=== PATIENT | female | born 1980 ===

== ENCOUNTER 2016-11-14 22:28 | Observation (INO) | payer MEDICARE, MEDICAID ==
[2016-11-14 22:34] VITALS: TEMP 98.9
--- NOTE | 2016-11-14 22:53 | ED PDOC ---
Lower Extremity Pain/Injury Chief Complaint (Provider): Ankle deformity History Per: Patient Additional Complaint(s): 35 yo female, PMH of speech impediment, presents to ED with complaints of right ankle deformity sustained tonight when she slipped on he dress while dancing. Pt declined pain medication upon arrival. Pt denies nay previous break to affected extremity <Lula Melendez - Last Filed: 11/15/16 03:16> <Ankit Wayne - Last Filed: 11/15/16 03:32> Time Seen by Provider: 11/14/16 22:41 Chief Complaint (Nursing): Lower Extremity Problem/Injury Past Medical History Reviewed: Nursing Documentation, Vital Signs Vital Signs: Last Vital Signs Temp 98.9 F 11/14/16 22:30 Pulse 98 H 11/14/16 22:30 Resp 18 11/14/16 22:30 BP 113/85 11/14/16 22:30 Pulse Ox 98 11/14/16 22:30 - Medical History PMH: No Chronic Diseases - Surgical History Surgical History: Back Surgery - Family History Family History: States: No Known Family Hx - Living Arrangements Living Arrangements: With Family - Social History Current smoker - smoking cessation education provided: No Alcohol: None Drugs: Denies <AlLula Linh - Last Filed: 11/15/16 03:16> Vital Signs: Last Vital Signs Temp 98.9 F 11/14/16 22:30 Pulse 98 H 11/14/16 22:30 Resp 18 11/14/16 22:30 BP 113/85 11/14/16 22:30 Pulse Ox 98 11/14/16 22:53 <Ankit Wayne - Last Filed: 11/15/16 03:32> - Home Medications Home Medications: Ambulatory Orders Medication Instructions Recorded Ibuprofen [Motrin] 600 mg PO Q6 #20 tab 11/15/16 oxyCODONE/Acetaminophen [Percocet 1 ea PO Q6 PRN #5 tab 11/15/16 5/325 mg Tab] - Allergies Allergies/Adverse Reactions: Allergies Allergy/AdvReac Type Severity Reaction Status Date / Time No Known Allergies Allergy Verified 11/14/16 22:30 Review of Systems ROS Statement: Except As Marked, All Systems Reviewed And Found Negative Musculoskeletal: Positive for: Other (ankle pain) <Lula Melendez Last Filed: 11/15/16 03:16> Physical Exam - Reviewed Nursing Documentation Reviewed: Yes Vital Signs Reviewed: Yes - Physical Exam Appears: Positive for: Well, Non-toxic, No Acute Distress Head Exam: Positive for: ATRAUMATIC, NORMAL INSPECTION, NORMOCEPHALIC Skin: Positive for: Normal Color, Warm, DRY Eye Exam: Positive for: EOMI, Normal appearance, PERRL ENT: Positive for: Normal ENT Inspection Neck: Positive for: Normal, Painless ROM Cardiovascular/Chest: Positive for: Regular Rate, Rhythm Respiratory: Positive for: CNT, Normal Breath Sounds Gastrointestinal/Abdominal: Positive for: Normal Exam, Bowel Sounds, Soft Back: Positive for: Normal Inspection Extremity: Positive for: Deformity, Swelling, Other (right foot displaed laterally with moderate edema and ecchymosis noted over medical malleolus) Neurologic/Psych: Positive for: Alert, Oriented <Lula Melendez - Last Filed: 11/15/16 03:16> - ECG O2 Sat by Pulse Oximetry: 98 <Lula Melendez - Last Filed: 11/15/16 03:16> - Critical Care Total Time (In Min): 30 <Ankit Wayne - Last Filed: 11/15/16 03:32> Medical Decision Making Medical Decision Making: Pt again declined analgesics upon arrival XR obtained; (+) fracture of distal fib with moderate displacement, as read by [facility] consult obtained and residents presented to bedside for reduction. ED MD, Dr. Wayne, preformed conscious sedation. See ED note. Pt splinted by Podiatry team and follow up arranged <Lula Melendez Last Filed: 11/15/16 03:16> Disposition - Patient ED Disposition Is Patient to be Admitted: No - Disposition Disposition: Routine/Home Disposition Time: 03:22 - POA Present On Arrival: None <Lula Melendez Last Filed: 11/15/16 03:16> <Ankit Wayne - Last Filed: 11/15/16 03:32> - Clinical Impression Clinical Impression: Ankle fracture - Disposition Condition: STABLE ED Procedural Sedation <WagnerdiamondGina sheikhLulakristie Blank Last Filed: 11/15/16 03:16> - Pre Anesthesia Assessment Past Medical History: Medications Reviewed, Allergies Reviewed, Record Review Previous Surgies: Reviewed Family History/Social History: Reviewed - Physical Exam/Review of Systems Vital Signs Reviewed: Yes Cardiovascular: Regular Rate and Rhythm, Normal S1, S2. denies: Murmurs Respiratory/Chest: Clear to Auscultation, Good Air Exchange. denies: Respiratory Distress, Accessory Muscle Use Neurological: GCS=15, CN II-XII Intact, Speech Normal Abdomen: Normal Bowel Sounds. denies: Tenderness, Distention, Peritoneal Signs Mental Status: Alert and Oriented X 3 - Pre-Procedure Airway Assessment History of difficult intubation or surgical airway (i.e trach):: No Inability to extend neck:: No Mouth opening less than two finger breadth:: No Diagnosis of sleep apnea:: No Less than three finger breadth to hyoid bone:: No ASA Criteria: 1 - Healthy, normal. 2 - Mild systemic disease (No functional limitations, mildline obesity, DM withot complications, Hypertention). 3 - Severe systemic disease (Some functional limitation, stable angina, morbid obesity, controlled COPD/Asthma/CHF). 4 - Sever systemic disease constant threat to life (Unstable angina, active symptoms of COPD/Asthma, CHF/ Hypertension. 5 - Moribund ASA Clarification: ASA I - Intra-Procedure (Medications) Medications Given: Sodium Chloride (Sodium Chloride 0.9%) 1,000 mls @ 1,000 mls/hr IV .Q1H STA Stop: 11/15/16 03:04 Last Admin: 11/15/16 02:19 Dose: 1,000 mls/hr Discontinued Medications Propofol (Diprivan) Confirm Administered Dose 1,000 mg in 100 mls @ ud .ROUTE .STK-MED ONE Stop: 11/15/16 02:17 Morphine Sulfate (Morphine) 2 mg IV ONCE ONE Stop: 11/14/16 23:20 Last Admin: 11/15/16 00:09 Dose: 2 mg Propofol (Diprivan) 100 mg IV ONCE ONE Stop: 11/15/16 02:07 Last Admin: 11/15/16 02:21 Dose: 100 mg - Post-Procedure Post Procedure Note: Reduction performed under sedation, and was easily completed. XR confirms positioning. Patient on cardiac catheterization technologist and tolerated the procedure well. <Ankit Wayne - Last Filed: 11/15/16 03:32> - Pre Anesthesia Assessment Chief Complaint: Lower Extremity Problem/Injury
[2016-11-15] MEDS ORDERED: Sodium Chloride 0.9% 1,000 ML IV STA (02:05)
[2016-11-15] MEDS ORDERED: Propofol 10 mg/ml Inj (20 ML) IV ONE (02:06)
[2016-11-15] MEDS ORDERED: Propofol 10 mg/ml 1,000 MG/100 ML VIAL ONE (02:16)
--- NOTE | 2016-11-15 02:17 | CP.PCM.CON ---
History of Present Illness - History of Present Illness History of Present Illness: 35 y/o female with no PMHx seen at bedside in ED for right displaced fibular fracture. Pt states that she was dancing around 9:30pm today when the injury occured. Pt denies of any other injuries on the body. Pt states that she just received pain medication so her pain is well managed. Pt states that she last ate or drank around 9 - 9:30pm. Pt denies of any recent F/N/V/C/SOB. PMHx: Denies PSHx: Back surgery Allergies: N.K.D.A SHx: Denies Review of Systems - Constitutional Constitutional: As Per HPI Past Patient History - Past Social History Smoking Status: Never Smoked - NEUROLOGICAL Hx Neurological Disorder: Yes (developmental delay, autisitic) - PSYCHIATRIC Hx Substance Use: No Meds Allergies/Adverse Reactions: Allergies Allergy/AdvReac Type Severity Reaction Status Date / Time No Known Allergies Allergy Verified 11/14/16 22:30 - Medications Medications: Current Medications Sodium Chloride (Sodium Chloride 0.9%) 1,000 mls @ 1,000 mls/hr IV .Q1H STA Stop: 11/15/16 03:04 Physical Exam - Constitutional Appears: Well, Non-toxic, No Acute Distress - Extremities Exam Additional comments: Right LE focused exam: VASC: DP/PT pulses are palpable 1/4, ELIGIBILITY AND OCCUPANCY INTERVIEWER: < 3 sec to all digits, TG: warm to cool, non-pitting edema noted on the lateral ankle DERM: no open lesions, no clinical suspicion of infections NEURO: Protective sensation grossly intact ORTHO: Active ROM intact at MTPJ, mild tenderness on the palpation of the lateral ankle - Neurological Exam Neurological exam: Alert, Oriented x3 - Psychiatric Exam Psychiatric exam: Normal Affect, Normal Mood Results - Vital Signs Recent Vital Signs: Last Vital Signs Temp 98.9 F 11/14/16 22:30 Pulse 98 H 11/14/16 22:30 Resp 18 11/14/16 22:30 BP 113/85 11/14/16 22:30 Pulse Ox 98 11/14/16 22:53 Assessment & Plan - Assessment and Plan (Free Text) Assessment: 35 y/o female seen at bedside in ED for a displaced spiral right fibular fracture (GUME: SER) Plan: Pt evaluated and chart reviewed Pt discussed in details with attending Dr. Loza Signed consent obtained by parents as well as the pt for close reduction of R ankle and sedation Closed reduction performed with sedation Pt tolerated the reduction well Pre and Post reduction x-rays taken and reviewed: post reduction films show adequate reduction of the R displaced fibula Posterior splint applied to R lower extremity using webril, plaster cast and RUSTY bandage Pt educated to use crutches and prevent from weightbearing to RLE Pt educated to elevate and ice posterior to the knee Pt/parents demonstrated verbal understanding Pt to follow up in the podiatry clinic on Thursday afternoon for further workup (pt unable to follow up on Thursday due to personal matter) Pt educated she will need surgery sometimes this week Thank you for the podiatry consult
[2016-11-15 02:49] VITALS: BP 121/85; PULSE 83; RESP 12
[2016-11-15 03:19] VITALS: O2SAT 98
--- NOTE | 2016-11-15 14:06 | RAD ---
PROCEDURE: Right ankle dated 11/15/2016 HISTORY: Post reduction films COMPARISON: None FINDINGS: BONES: Current study reveals interval closed reduction previously noted fracture dislocation of the right fibula and tibia respectively. Improved anatomic alignment. Moderate significant surrounding soft tissue swelling. JOINTS: Talar dome is intact so far as can be seen SOFT TISSUES: Normal. OTHER FINDINGS: None. IMPRESSION: Closed reduction previously noted fracture dislocation of the right fibula and tibia respectively. Improved anatomic alignment. Surrounding soft tissue swelling.
--- NOTE | 2016-11-15 14:08 | RAD ---
Right ankle dated 11/15/2016. History: Status post fall with deformity. Three standard views of the right ankle performed. No prior. Findings: Current study reveals a oblique/diagonal fracture traversing the distal fibula with mild posterior displacement of the distal fragment. . Associated medial dislocation of the right tibia with respect to the to the talus. . Moderate surrounding soft tissue swelling lateral greater than medial. Impression: There is an oblique/ diagonal fracture traversing the distal fibula with medial dislocation of the tibia with respect to the talus. Surrounding soft tissue swelling.
== END 2016-11-15 03:36 | disposition home or self-care (01) ==
LOC: H.ER 22:28 → H.EROBSV 23:10
PROVIDERS: ADMIT Emergency Medicine; ATTEND Emergency Medicine
DX: S82.441A Displaced spiral fracture of shaft of right fibula, initial encounter for closed fracture (principal); W18.49XA Other slipping, tripping and stumbling without falling, initial encounter; Y93.21 Activity, ice skating; Y92.9 Unspecified place or not applicable; R62.50 Unspecified lack of expected normal physiological development in childhood; F84.0 Autistic disorder
CPT/HCPCS: 27781; 73600; 73610; 81025; 99284; G0378; J2270; J2704; J7040

== ENCOUNTER 2016-11-21 06:49 | Day surgery (SDC) | payer MEDICARE, MEDICAID ==
[2016-11-21 07:11] VITALS: BMI 19.7
[2016-11-21] MEDS ORDERED: Lidocaine 1% Inj (20ml) ONE (07:15)
[2016-11-21] MEDS ORDERED: Bupivacaine 0.5% Inj(30mL) ONE (07:16)
[2016-11-21] MEDS ORDERED: Lidocaine 1% Inj (20ml) IJ ONE (07:18)
[2016-11-21] MEDS ORDERED: Bupivacaine 0.5% 50 ML IJ ONE (07:18)
[2016-11-21] MEDS ORDERED: ceFAZolin 1 GM in Sodium Chloride 0.9% 100 ML IVPB ONE (07:18)
--- NOTE | 2016-11-21 07:23 | CP.SDSHP ---
Same Day Surgery H & P - History Proposed Procedure: Right ankle fx ORIF Pre-Op Diagnosis: Displaced right fibular fracture - Allergies Allergies: Allergies No Known Allergies Allergy (Verified 11/14/16 22:30) - {Optional Preform as Required} Integument: WNL Ortho: Other - Impression Impression: Pt was seen and examined in SDS. Pt NPO status was confirmed. All Pre-op testing and clearance was in the chart. Pt has exhausted all conservative treatment at this time and is opting for surgical intervention. Pt was explained procedure and post-operative course. All pt's questions were answered to satisfaction. No guarantees were made. Pt understands all risks, benefits and complications of procedure. Pt will follow-up with Dr. Loza in podiatry clinic - Date & Time Date: 11/21/16 Time: 07:45 Short Stay Discharge - Short Stay Discharge Admitting Diagnosis/Reason for Visit: S82.6 Disposition: HOME/ ROUTINE Referrals: Bret Ibrahim MD [Primary Care Provider] - Jw Loza DPM [Staff Provider] - Additional Instructions (Diet, Activity): Patient in good/stable condition for discharge home. Pt to resume medications per medical reconciliation. Resume regular diet. Please keep dressing clean, dry, & intact to surgical site, use plastic bag over bandage for showering, wear post op shoe at all times when ambulating, call clinic if you see signs of infection (redness, swelling, malodor), please make an appointment to see Dr. Loza in office/clinic within 1 week for post- op check. Progress Note/Discharge Note with Instructions: - Patient evaluated bedside in recovery s/p surgical procedure. - After surgical procedure patient in NAD - (+) Void, (+) Appetite - Capillary refill time <3s and NVSI intact. - Patient denies complaints at this time - Post operative instructions and plan of care explained to patient at length. - Pt. acknowledges understanding. - Patient stable for DC per podiatric surgery
--- NOTE | 2016-11-21 07:26 | CP.PCM.PN ---
Subjective - Date & Time of Evaluation Date of Evaluation: 11/21/16 Time of Evaluation: 07:00 - Subjective Subjective: 35 year old female seen at bedside in [facility] for displaced right fibular fracture. Patient states that she has been NPO since 7pm yesterday. Patient denies placing weight in RLE. Patient denies any food/drug allergies. Patient denies N/ V/F/D/SOB/CP. No other pedal complaints at this time. PMHx: Denies PSHx: Back surgery Allergies: N.K.D.A SHx: Denies Objective - Medications Medications: Current Medications Bupivacaine HCl (Marcaine 0.5% 50 Ml) 50 ml IJ ONCE ONE Stop: 11/21/16 07:19 Cefazolin Sodium 1 gm/ Sodium (Chloride) 100 mls @ 100 mls/hr IVPB ONCE ONE Stop: 11/21/16 08:17 Sodium Chloride (Sodium Chloride 0.9%) 1,000 mls @ 90 mls/hr IV .Q11H7M JUAN Stop: 11/22/16 07:19 Lidocaine HCl (Lidocaine 1% (20ml)) 20 ml IJ ONCE ONE Stop: 11/21/16 07:19 - Constitutional Appears: Well, Non-toxic, No Acute Distress - Extremities Exam Additional comments: RLE focused physical exam: Posterior splint is clean, dry, intact. Vasc: CFT <3 seconds to digits x5 Neuro: Gross sensation intact. Ortho: Active ROM to MPJ x5 with no pain on ROM - Neurological Exam Neurological Exam: Alert, Awake, Oriented x3 - Psychiatric Exam Psychiatric exam: Normal Affect, Normal Mood Assessment and Plan - Assessment and Plan (Free Text) Assessment: 35 year old female seen at bedside in [facility] for displaced right fibular fracture ( GUME: SER) Plan: Pt was seen and examined in [facility] Pt NPO status was confirmed All Pre-op testing and clearance was in the chart Pt has exhausted all conservative treatment at this time and is opting for surgical intervention Pt was explained procedure and post-operative course All pt's questions were answered to satisfaction No guarantees were made Pt understands all risks, benefits and complications of procedure Pt will follow-up with Dr. Loza in podiatry clinic
[2016-11-21] MEDS ORDERED: Propofol 10 mg/ml Inj (20 ML) ONE (07:30)
[2016-11-21] MEDS ORDERED: Midazolam 2 MG/2 ML VIAL ONE (07:30)
[2016-11-21] MEDS ORDERED: Sodium Chloride 0.9% 1,000 ML IV SCH (07:30)
[2016-11-21] MEDS ORDERED: Ropivacaine 0.5% 30ML IV ONE (07:36)
--- NOTE | 2016-11-21 09:04 | PCM.ANESB2 ---
Popliteal Nerve Block - Popliteal Nerve Block Date of Procedure: 11/21/16 Anesthesiologist: Errol Gates MD Pre-Procedure Diagnosis: Right Ankle Fracture Post-Procedure Diagnosis: Same Procedure Performed: Popliteal Nerve Block Right - Procedure Popliteal Nerve Block: This procedure was explained to the patient and parents that it is for post- operative pain management. Consent was obtained after a thorough discussion with the patient and parents regarding the benefits and possible complications of local anesthetic block of the sciatic nerve at the popliteal level. The patient was brought to the operating room and standard monitors are applied. Time-out was held with the circulating nurse to confirm the correct surgery and the appropriate block. After applying all standard monitors general anesthesia was induced, patient's operative leg was gently raised and supported and the groove in between the biceps femoris and vastus lateralis muscles was carefully palpated. The skin approximately 8cm above the popliteal crease was then marked. The ultrasound transducer was then applied to the posterior thigh approximately 8cm above the popliteal crease in the transverse plane and the sciatic nerve before its division was visualized lateral to the popliteal artery and in between the bicep femoris and semimembranosus/semitendinosus muscles. After identification, the lateral portion of the thigh was prepped with chloroprep solution. At this point, a # 21 gauge Stimuplex insulated 4 inch needle was inserted into pre-marked area and advanced in a perpendicular direction. The needle was inserted above the ultrasound transducer in-plane towards the sciatic nerve in a [id number] direction. Needle advancement was performed carefully under direct ultrasound visualization. Nerve stimulator was used and dorsiflexion of the _Right____ foot was elicited at a current of _0.2____ MA. After repeated negative aspiration, _20 ____cc of _0.5____ % _Ropivacaine with 4 mg of dexamethasone was injected . Under ultrasound guidance the local anesthetics were observed tenting the epidural sheath and surrounding the roots of the sciatic nerve. The needle was removed intact and sterile dressing was applied. The patient tolerated the popliteal nerve block well with stable vital signs and was subsequently prepared for the surgery.
[2016-11-21] MEDS ORDERED: HYDROmorphone 0.5 mg/0.5 ml ISec IVP PRN (09:39)
[2016-11-21] MEDS ORDERED: Lactated Ringer's 1,000 ML IV SCH (09:39)
[2016-11-21] MEDS ORDERED: Oxycodone/Acetaminophen 5/325 mg Tab PO PRN ×2 (09:41)
--- NOTE | 2016-11-21 10:39 | PCM.SURG1 ---
Surgeon's Initial Post Op Note - Surgeon's Notes Surgeon: Dr. Loza Rv Repairer: Dr. Galindo, Dr. Chan, Dr. Gandara Type of Anesthesia: General IV Anesthesia Administered By: Dr. Gates Pre-Operative Diagnosis: Right displaced fibular fracture Operative Findings: see dictation. M: 3.5 18 mm interfrag screw, 2.7/3.5 VALCP plate, 3.5 14 mm cortical screw, 2.7 10,12,10,12 mm locking screw, 3.5 16mm cortical screw, 2.7 14 mm locking screw, 2-0,3-0,4-0 vicryl, 4-0 nylon. I: 10 cc of 0.5% marcain plain Post-Operative Diagnosis: same Operation Performed: Open Reduction and Internal Fixation of Right ankle fracture Specimen/Specimens Removed: none Estimated Blood Loss: EBL {In ML}: 5 Blood Products Given: N/A Drains Used: No Drains Post-Op Condition: Good Date of Surgery/Procedure: 11/21/16 Time of Surgery/Procedure: 10:00
--- NOTE | 2016-11-21 11:00 | RAD ---
PROCEDURE: Right ankle dated 11/21/2016 HISTORY: s/p right ankle surgery COMPARISON: Comparison made with prior study 11/15/2016 FINDINGS: BONES: Status post ORIF previously noted fracture distal right fibula. Side plate has been attached to the distal right fibula. Satisfactory alignment. Mild overlying soft tissue swelling with few bubbles of subcutaneous air. JOINTS: Normal. No osteoarthritis. Ankle mortise maintained. Talar dome intact SOFT TISSUES: Normal. OTHER FINDINGS: None. IMPRESSION: Status post ORIF previously noted fracture distal right fibula as above mild soft tissue swelling and what appears represent a few bubbles of subcutaneous air diffuse.
--- NOTE | 2016-11-21 11:18 | RAD ---
PROCEDURE: Intraoperative Fluoroscopy. HISTORY: ORIF RIGHT ANKLE FINDINGS: Fluoroscopic assistance was provided. Approximately 22.6 seconds of fluoroscopy time utilized during this procedure. Please refer to the operative report of for additional details.
[2016-11-21 12:10] VITALS: RESP 18
[2016-11-21 13:01] VITALS: BP 123/72; PULSE 81; TEMP 97.4; O2SAT 100
--- NOTE | 2016-11-25 16:24 | OP ---
PROCEDURE DATE: 11/21/2016 PREOPERATIVE DIAGNOSIS: Right ankle displaced fibular fracture. POSTOPERATIVE DIAGNOSIS: Right ankle displaced fibular fracture. PROCEDURES PERFORMED: Open reduction and internal fixation of right ankle fibular fracture. SURGEON: Dr. Jw Loza. ASSISTANTS: Dr. Pillo Galindo and Dr. Preston Chan and Dr. Martin Gandara. TYPE OF ANESTHESIA: General. ANESTHESIA ADMINISTERED BY: Dr. Gates. INDICATIONS: This patient is a 35-year-old female with the aforementioned diagnosis. The patient suffered a traumatic ankle fracture last week, which was confirmed through diagnostic imaging. The patient desired surgical intervention at this time. All alternatives, benefits, complications, risks and surgical procedure were explained to the patient at length. The patient verbalized understanding and wished to proceed. All questions were addressed and answered. No guarantees were given or implied. The patient's father signed the consent and the patient's n.p.o. status was confirmed prior to bringing the patient to the operating room. DESCRIPTION OF PROCEDURE: The patient was brought into the operating room, placed on operative table in supine position. A pneumatic thigh tourniquet was placed around the patient's right thigh after induction of general sedation. The foot and ankle were prepped in the normal sterile manner and the procedure began. PROCEDURE #1: Open reduction and internal fixation of right ankle fibular fracture. Attention was directed to the lateral aspect of the right ankle where a linear longitudinal incision was made directly overlying the distal fibula. The incision was deepened through superficial and subcutaneous tissues utilizing sharp and blunt dissection. Care was taken to retract all vital neurovascular structures throughout the duration of the procedure. All superficial bleeding vessels were cauterized utilizing electrocautery. Dissection was then carried down to the level of periosteum and at this time, the level of the fibula fracture to be identified. A #15-blade was utilized to make an incision through the periosteum and it was noted there was an extensive amount of hematoma in the fracture site. Utilizing a #15 blade and pickups, the fracture site was freed of any periosteum or soft tissue. Next, the dental pick and curette were utilized curette any invaginating soft tissue or hematoma within the fracture site. The fracture site was then flushed with sterile saline. Once the fracture site was cleared of any debris, bone reduction forceps were utilized to reduce the fracture and temporarily hold the reduction. Intraoperative fluoroscopy was utilized to ensure the proper reduction of the fracture. Once the fracture reduction was deemed adequate, a Synthes 2.5 mm cortical screw was inserted across the fracture site to serve as an interfragmentary compression screw utilizing standard AO technique. It was noted at that time that there was excellent contraction across the fracture site. The bone reduction forceps was then removed from the fibula and it was noted that the interfragmentary screw was in the appropriate placement with adequate fixation across the fracture site. Next, utilizing a Synthes 2.7 mm/3.5 mm VA LCP lateral to the mid plate, a 3-hole plate was applied to the lateral aspect of the fibula. Intraoperative fluoroscopy was utilized to ensure proper location of this plate. Once it was deemed that the plate was in the proper position, a 3.5 mm fully threaded Synthes cortical screw was inserted into one of the proximal holes bicortically across the fibula. Next, a 2.7 mm Synthes fully threaded locking screw was inserted in one of the distal plate holes. Then the plate was fixated to the lateral aspect of the fibula utilizing a 3.5 mm Synthes fully threaded cortical screw and three additional Synthes 2.7 mm locking screws. All screws were inserted utilizing standard AO technique to two finger tightness. Intraoperative fluoroscopy was utilized to ensure that the proximal screws were bicortical and the distal screws did not violate the ankle joint. At this time, it was noted that the plate had been applied in the appropriate position and there was adequate fixation across the fracture site. The surgical area was then flushed with copious amounts of sterile normal saline. The periosteal and deep layers were then reapproximated utilizing 2-0 and 3-0 Vicryl suture. The subcutaneous tissues were then reapproximated utilizing 4-0 Vicryl suture. The skin was reapproximated utilizing 4-0 nylon suture. Intraoperative injection consisted of 10 mL with 0.5% Marcaine plain. Postoperative bandages consisted of Betadine, Adaptic, DSD, Dhaval, Sanya bandage, and a posterior splint. POSTOPERATIVE CONDITION: The patient tolerated the procedure and the anesthesia well with no apparent complications or complaints. The patient was transferred from the OR to the recovery room with vital signs stable and neurovascular status intact. The patient will follow up with Dr. Loza in the [facility] clinic. Pillo Galindo DPM [facility] # [id number] LORI
== END 2016-11-21 13:43 | disposition home or self-care (01) ==
LOC: H.OPSURG 06:49
PROVIDERS: ATTEND Podiatrist Foot & Ankle Surgery
DX: S82.61XA Displaced fracture of lateral malleolus of right fibula, initial encounter for closed fracture (principal); X58.XXXA Exposure to other specified factors, initial encounter
CPT/HCPCS: 27792; 73600; 76001; 97116; 97162; C1713; C1769; G8978; G8979; G8980; J0690; J2001; J2250; J2704; J3010; J7040; J7120